=== PATIENT | female | born 1965 | race Caucasian/White ===

== ENCOUNTER 2020-08-04 08:02 | Day surgery (SDC) | payer BC ==
[~2020-08-04 08:02] MED LIST: Dextrose 5%-0.45% NaCl 1,000 ML IV SCH; Midazolam 1 MG/ML 2 ML SDV ONE; fentaNYL 100 MCG/2 ML SDV ONE
[2020-08-04] MEDS ORDERED: Midazolam 1 MG/ML 2 ML SDV IV ONE ×8 (08:03→08:41)
[2020-08-04] MEDS ORDERED: fentaNYL 100 MCG/2 ML SDV IV ONE ×3 (08:03→08:34)
--- NOTE | 2020-08-04 10:20 | OR ---
DATE: 08/04/2020 PREOPERATIVE DIAGNOSIS: Change in bowel function to constipation. POSTOPERATIVE DIAGNOSIS: Change in bowel function to constipation. PROCEDURE: Total colonoscopy. ANESTHESIA: Conscious sedation with IV Versed and fentanyl. SPECIMEN: None. FINDINGS: Normal colonoscopy. RECOMMENDATIONS: Followup colonoscopy is needed. I did not find any evidence of structural problems that would cause constipation. INDICATIONS FOR PROCEDURE: This 55-year-old female referred for evaluation of change in bowel function. She now is having increasing constipation. PROCEDURE IN DETAIL: After adequate preparation, a colonoscope was inserted into the rectum. This was easily passed all the way to the cecum. Confirmation of the cecum was made by visualization of the ileocecal valve, the appendiceal opening, and palpation in the right lower quadrant. Photograph of the valve was taken. The bowel prep was excellent. On withdrawal of the scope, no abnormalities were noted. Anal and rectal examinations are also normal. Air was suctioned from the colon and the scope removed. [facility] /[id number]
== END 2020-08-04 10:39 | disposition home or self-care (01) ==
LOC: DL.ENDO 08:02
PROVIDERS: ATTEND Surgery
DX: K59.00 Constipation, unspecified (principal); Z88.8 Allergy status to other drugs, medicaments and biological substances; Z88.1 Allergy status to other antibiotic agents
CPT/HCPCS: 45378; J2250; J3010; J7042